=== PATIENT | female | born 1945 | race Caucasian/White ===

== ENCOUNTER 2016-08-23 11:53 | Emergency (ER) | payer MEDICARE ==
[~2016-08-23] VITALS: Ht 172.7 cm; Wt 125.3 kg
[2016-08-23 12:02] VITALS: BP 139/91; PULSE 98; RESP 16; TEMP 99.3; O2SAT 95
--- NOTE | 2016-08-23 12:31 | PD ---
HPI Chief Complaint: ENT Complaint Time Seen by Provider: 12:28 Travel History International Travel<30 days: No Contact w/Intl Traveler<30days: No Traveled to known affect area: No History of Present Illness HPI 71-year-old female presents to the emergency room with complaint of left lower tooth pain that extends to her left ear 2 days. Reports feeling hot and feverish last night, but did not take her temperature and cannot report a MAXIMUM TEMPERATURE. Pain is constant. No known relieving or aggravating factors. Says she doesn't know if it is her ear or her tooth. She had dental work done on the affected tooth a little more than a month ago. Denies facial swelling or erythema. Denies nausea, vomiting. Took Advil prior to arrival for pain with some relief. Allergies to Neosporin and penicillin. No other modifying factors or associated signs and symptoms. PFSH Past Medical History Cardiovascular Problems: Yes (DEFIB) Diabetes: Yes ?: Not Social History Tobacco Use: No Allergies-Medications (Allergen,Severity, Reaction): Coded Allergies: Neosporin (Verified Allergy, Severe, HIVES, 08/23/16) Penicillin (Verified Allergy, Severe, TOLD BY HOSPITAL STAFF DURING ALLERGY TESTING, 08/23/16) Reported Meds & Prescriptions Reported Meds & Active Scripts Active Ibuprofen 800 Mg Tab 800 Mg PO Q6HR PRN Clindamycin (Clindamycin HCl) 150 Mg Cap 450 Mg PO Q6H 10 Days Magic Mouthwash Adult Liq (Multi-Ingredient Mouthwash/Gargle) 120 Ml Susp 5 Ml SWISH-SPIT Q3HR PRN Each 5 mL contains: Nystatin 200,000 units, Diphenhydramine 4.25 mg, Viscous Lidocaine 10 mg, Hazel syrup 0.8 mL Peridex Liq (Chlorhexidine Gluconate (Mouth) Liq) 0.12% Soln 15 Ml SWISH-SPIT BID 10 Days Reported Aspirin 81 (Aspirin) 81 Mg Tabdr 81 Mg PO DAILY Biotin 5,000 Mcg Cap 5,000 Mcg PO DAILY E400 (Vitamin E) 400 Unit Cap 2 Cap PO DAILY Bupropion HCl 100 Mg Tab 300 Mg PO DAILY Novolog Inj (Insulin Aspart) 1,000 Unit/10 Ml Vial 10-12 Units SQ TID Levemir Inj (Insulin Detemir) 1,000 unit/ 10 ML Vial 40 Units SQ DAILY Do not mix with any other Insulin. Lisinopril 2.5 Mg Tab 2.5 Mg PO DAILY Evista (Raloxifene HCl) 60 Mg Tab 60 Mg PO DAILY Pravachol (Pravastatin) 40 Mg Tab 40 Mg PO DAILY Nexium (Esomeprazole DR) 40 Mg Capdr 40 Mg PO DAILY Anafranil (Clomipramine HCl) 50 Mg Cap 100 Mg PO DAILY Aldactone (Spironolactone) 100 Mg Tab 100 Mg PO DAILY Review of Systems Except as stated in HPI: all other systems reviewed are Neg Physical Exam Narrative GENERAL: Well-nourished, well-developed female patient, in no acute distress; afebrile, nontoxic-appearing SKIN: Warm and dry. HEAD: Atraumatic. Normocephalic. No facial edema, erythema, tenderness on palpation. No lymphadenopathy. EYES: Pupils equal and round. No scleral icterus. No injection or drainage. ENT: Mucosa pink and moist. Airway patent. MOUTH: Mucous membranes moist, no lesions, tongue and gums appear normal. Left lower tooth #19 with dental abscess that is draining purulent drainage; the area is tender to palpation and mildly edematous and without erythema. NECK: Trachea midline. No lymphadenopathy. CARDIOVASCULAR: Regular rate. RESPIRATORY: No accessory muscle use. GASTROINTESTINAL: Rounded. MUSCULOSKELETAL: No obvious deformities. No clubbing. No cyanosis. No edema. NEUROLOGICAL: Awake and alert. Oriented 3. No obvious cranial nerve deficits. Motor grossly within normal limits. Normal speech. PSYCHIATRIC: Appropriate mood and affect; insight and judgment normal. Data Data Last Documented VS Vital Signs Date Time Temp Pulse Resp B/P Pulse Ox O2 Delivery O2 Flow Rate FiO2 08/23/16 12:41 16 08/23/16 12:02 99.3 98 139/91 95 Orders Clindamycin Inj (Cleocin Inj) (08/23/16 12:45) [facility] Medical Decision Making Medical Screen Exam Complete: Yes Emergency Medical Condition: Yes Medical Record Reviewed: Yes Differential Diagnosis Dental abscess, dentalgia, gingivitis Narrative Course 71-year-old female with left lower tooth #19 with a dental abscess that is draining purulent drainage. No facial edema, erythema, lymphadenopathy. Tooth is tender to palpation. Patient is afebrile and nontoxic-appearing. Clindamycin IM administered in ER. 1326: Patient awaiting discharge and appears to be in pain. Toradol administered in ER. Clindamycin, Peridex mouth rinse, Magic mouthwash, ibuprofen prescribed for home. Instructed patient to follow up with dentist and she verbalized understanding and agreement. Patient is medically cleared and stable for discharge. Discussed reasons to return to the emergency department. Instructed patient to follow up with primary care provider. Patient agrees with treatment plan. The patients vital signs are stable and the patient is stable for outpatient follow-up and treatment. Patient discharged home, stable and in no acute distress. Diagnosis Primary Impression: Dental abscess Referrals: Dentist Primary Care Physician Patient Instructions: Dental Abscess (ED), General Instructions Additional Instructions: Complete full course of antibiotics Ibuprofen as directed and as needed to reduce pain and inflammation Use Magic mouthwash rinse as directed and as needed to decrease pain Use Peridex as directed for oral hygiene Warm compresses to the affected area Follow-up with dentist Follow-up with primary care provider Return to emergency department immediately with worsening of symptoms Med/Other Pt SpecificInfo: Prescription(s) given Scripts Ibuprofen 800 Mg [id number] Mg PO Q6HR PRN (PAIN) #30 TAB Ref 0 Prov:Marisel Osman 08/23/16 Clindamycin 150 Mg [id number] Mg PO Q6H 10 Days Ref 0 Prov:Marisel Osman 08/23/16 [id number]-[id number] Liq (Magic Mouthwash Adult Liq)120 Ml Susp5 Ml SWISH-SPIT Q3HR PRN (PAIN SCALE 1 TO 10) #120 ML Ref 0 Each 5 mL contains: Nystatin 200,000 units, Diphenhydramine 4.25 mg, Viscous Lidocaine 10 mg, Hazel syrup 0.8 mL Prov:Marisel Osman 08/23/16 Chlorhexidine Gluconate (Mouth) Liq (Peridex Liq)0.12% Soln15 Ml SWISH-SPIT BID 10 Days Ref 0 Prov:Marisel Osman 08/23/16 Disposition: 01 DISCHARGE HOME Condition: Stable Marisel Osman Aug 23, 2016 12:31 Marisel Osman Aug 23, 2016 12:31
[2016-08-23] MEDS ORDERED: CLIN1CAP5 PO (12:33)
[2016-08-23] MEDS ORDERED: MAGICADU2 SWISH-SPIT (12:33)
[2016-08-23] MEDS ORDERED: IBUP800T23 PO (12:33)
[2016-08-23] MEDS ORDERED: PERI0.126 SWISH-SPIT (12:33)
[2016-08-23] MEDS ORDERED: CLINDAMYCIN PHOS 600 MG/4 ML VIAL IM ONE (12:45)
[2016-08-23] MEDS ORDERED: NOVOLOGP2 SQ (12:52)
[2016-08-23] MEDS ORDERED: [UNRECOGNIZED DRUG - CODE] PO (12:52)
[2016-08-23] MEDS ORDERED: ANAF50CA PO (12:52)
[2016-08-23] MEDS ORDERED: BUPR100T4 PO (12:52)
[2016-08-23] MEDS ORDERED: ALDA100T PO (12:52)
[2016-08-23] MEDS ORDERED: ASPI-110 PO (12:52)
[2016-08-23] MEDS ORDERED: LISI2.5T3 PO (12:52)
[2016-08-23] MEDS ORDERED: BIOT50005 PO (12:52)
[2016-08-23] MEDS ORDERED: PRAV40TA PO (12:52)
[2016-08-23] MEDS ORDERED: LEVEMIR SQ (12:52)
[2016-08-23] MEDS ORDERED: NEXI40CA PO (12:52)
[2016-08-23] MEDS ORDERED: EVIS60TA PO (12:52)
[2016-08-23] MEDS ORDERED: KETOROLAC TROMETHAMINE 60 MG/2 ML (IM) VIAL IM ONE (13:30)
== END 2016-08-23 13:48 | disposition home or self-care (01) ==
LOC: PHEFT 11:53
DX: K04.7 Periapical abscess without sinus (principal); H92.02 Otalgia, left ear; E11.9 Type 2 diabetes mellitus without complications; Z86.79 Personal history of other diseases of the circulatory system; Z79.4 Long term (current) use of insulin
CPT/HCPCS: 96372; 99283; J1885